=== PATIENT | female | born 1995 | race Hispanic/Latino ===

== ENCOUNTER 2021-10-31 21:32 | Emergency (ER) | payer SELFPAY ==
--- NOTE | 2021-10-31 21:59 | ER ---
Nurse's Notes [facility] Name: Heather Ivory Age: 26 yrs Sex: Female : 1995 Arrival Date: 10/31/2021 Time: 21:33 Bed Waiting Private MD: Diagnosis: ED Course: 10/31 21:33 Patient arrived in ED. [id number] Administered Medications: No medications were administered Outcome: 21:59 Patient left the ED. vc1 Signatures: Hyacinth Martell5 Ciara Hobson, RN RN vc1
== END 2021-10-31 21:59 | disposition left against medical advice (07) ==
LOC: ER 21:32
DX: Z02.9 Encounter for administrative examinations, unspecified (principal)

== ENCOUNTER 2021-11-01 08:52 | Emergency (ER) | payer BC ==
[2021-11-01 09:44] LABS: Urine Blood 2+ (Negative); Urine Glucose Negative (Negative); Urine Protein Negative (Negative); Urine Specific Gravity >=1.030 (1.005-1.030)
--- NOTE | 2021-11-01 10:49 | ER ---
Nurse's Notes [facility] Name: Heather Ivory Age: 26 yrs Sex: Female : 1995 Arrival Date: 11/01/2021 Time: 08:56 Bed 20 Private MD: Diagnosis: Paronychia of the right great toe Presentation: 11/01 09:07 Chief complaint: Patient states: " I picked my toenail and I pulled off too much and ph now it's red and swollen and looks like there's a pus pocket." Reports injury to R great toe, denies fever. Coronavirus screen: At this time, the client does not indicate any symptoms associated with coronavirus-19. Ebola Screen: No symptoms or risks identified at this time. Initial Sepsis Screen: Does the patient meet any 2 criteria? No. Patient's initial sepsis screen is negative. Does the patient have a suspected source of infection? No. Patient's initial sepsis screen is negative. Risk Assessment: Do you want to hurt yourself or someone else? Patient reports no desire to harm self or others. Onset of symptoms was November 01, 2021. 09:07 Method Of Arrival: Ambulatory 09:07 Acuity: DOMENIC 4 ph Triage Assessment: 11:00 General: Appears in no apparent distress. Behavior is calm. 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 - Social history:: Smoking status: Patient denies any tobacco usage or history of. Screenin:58 Abuse screen: Denies threats or abuse. Denies injuries from another. Nutritional coffey screening: No deficits noted. Tuberculosis screening: No symptoms or risk factors identified. Fall Risk None identified. Assessment: 10:58 Pain: Complains of pain in right great toe. Derm: Reports pain that is 9 out of 10 on a coffey pain scale. pus swollen great right toe. Vital Signs: 09:07 BP 118 / 74; Pulse 78; Resp 18; Temp 97.2; Pulse Ox 100% on R/A; Weight 61.23 kg; ph Height 4 ft. 11 in. (149.86 cm); 09:07 Body Mass Index 27.27 (61.23 kg, 149.86 cm) ED Course: 08:56 Patient arrived in ED. mr 08:56 Jean-Paul Zamora PA is PHCP. [facility] 08:56 Mikhail Meadows MD is Attending Physician. [facility] 09:09 Triage completed. 09:09 Arm band placed on Patient placed in an exam room. 10:49 Kun Albright DPM is Referral Physician. [facility] 10:58 Patient has correct armband on for positive identification. Bed in low position. coffey 10:58 No provider procedures requiring assistance completed. Patient did not have IV access coffey during this emergency room visit. Administered Medications: No medications were administered Outcome: 10:49 Discharge ordered by . [facility] 10:58 Discharged to home 10:58 Condition: good 10:58 Discharge instructions given to patient, Prescriptions given X 1. 11:00 Patient left the ED. coffey Signatures: Jean-Paul Zamora PA PA [facility] Ramandeep ByrdAshleigh RN RN Theodora Perez RN RN
--- NOTE | 2021-11-01 10:49 | EDPHYS ---
Physician Documentation [facility] Name: Heather Ivory Age: 26 yrs Sex: Female : 1995 Arrival Date: 11/01/2021 Time: 08:56 Bed 20 Private MD: ED Physician Mikhail Meadows HPI: 11/01 10:45 This 26 yrs old Female presents to ER via Ambulatory with complaints of Toe jmm Injury. 10:45 The complaints affect the Right first toenail. Onset: The symptoms/episode jmm began/occurred gradually, 2 week(s) ago. Modifying factors: The symptoms are alleviated by nothing, the symptoms are aggravated by nothing. Associated signs and symptoms: Pertinent positives: swelling, Pertinent negatives: fever. Patient complains of increased pain over the past few days. Denies fever. . 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 - Social history:: Smoking status: Patient denies any tobacco usage or history of. ROS: 10:45 Constitutional: Negative for fever, chills, and weight loss, Cardiovascular: Negative jmm for chest pain, palpitations, and edema, Respiratory: Negative for shortness of breath, cough, wheezing, and pleuritic chest pain. 10:45 Skin: Positive for erythema. 10:45 All other systems are negative. Exam: 10:45 Constitutional: This is a well developed, well nourished patient who is awake, alert, jmm and in no acute distress. Head/Face: atraumatic. Eyes: EOMI, no conjunctival erythema appreciated ENT: Moist Mucus Membranes Neck: Trachea midline, Supple Chest/axilla: Normal chest wall appearance and motion. Cardiovascular: Regular rate and rhythm. No edema appreciated Respiratory: Normal respirations, no respiratory distress appreciated Abdomen/GI: Non distended, soft Back: Normal ROM 10:45 Skin: erythema surrounding the right great toe nailplate. 10:45 Neuro: Orientation: is normal, Mentation: is normal, Memory: is normal. 10:45 Psych: Behavior/mood is pleasant, cooperative. Vital Signs: 09:07 BP 118 / 74; Pulse 78; Resp 18; Temp 97.2; Pulse Ox 100% on R/A; Weight 61.23 kg; ph Height 4 ft. 11 in. (149.86 cm); 09:07 Body Mass Index 27.27 (61.23 kg, 149.86 cm) ph Procedures: 10:45 I \T\ D: Incision and drainage was performed for an abscess of the Right first toenail jmm Prepped with Betadine, Anesthetized with Incised with 18 gauge. Drained small amount purulent fluid. Dressing: sterile 4x4 gauze, non-Adherent dressing, the patient tolerated the procedure well. MDM: 09:17 Patient medically screened. [facility] 10:45 Data reviewed: vital signs, nurses notes. Counseling: I had a detailed discussion with vilma the patient and/or guardian regarding: the historical points, exam findings, and any diagnostic results supporting the discharge/admit diagnosis, the need for outpatient follow up, to return to the emergency department if symptoms worsen or persist or if there are any questions or concerns that arise at home. ED course: Patient advised to follow up with podiatry, otherwise given strict return precautions. Patient understood and agrees with the plan of care. . 11/01 09:43 Order name: Urine Dipstick-Ancillary; Complete Time: 09:45 EDMS 11/01 09:43 Order name: Urine --Ancillary (enter results); Complete Time: 10:02 eb 11/01 09:17 Order name: Urine Test (obtain specimen); Complete Time: 09:46 [facility] 11/01 09:17 Order name: Urine Dipstick-Ancillary (obtain specimen); Complete Time: 09:46 [facility] Administered Medications: No medications were administered Disposition: 14:23 Co-signature as Attending Physician, Mikhail Meadows MD I agree with the assessment and kdr plan of care. Disposition Summary: 11/01/21 10:49 Discharge Ordered Location: Home [facility] Condition: Stable [facility] Diagnosis - Paronychia of the right great toe opal Followup: opal - With: Kun Albright DPM - When: 2 - 3 days - Reason: Recheck today's complaints, Continuance of care, Re-evaluation by your physician Discharge Instructions: - Discharge Summary Sheet opal - Paronychia [facility] Forms: - Medication Reconciliation Form [facility] - Thank You Letter jmm - Antibiotic Education jmm - Prescription Opioid Use jmm - Work release form eb Prescriptions: - Doxycycline Hyclate 100 mg Oral Tablet - take 1 tablet by ORAL route every 12 hours; 20 tablet; Refills: 0, Product jmm Selection Permitted Signatures: Dispatcher [employer] Mikhail Benites MD MD kdr Mickail, Joel, PA PA jmm Hall, Patricia, RN RN [facility] Hospital[facility]odora Cook RN RN coffey
[2021-11-01 11:11] VITALS: BP 118/74; TEMP 97.2; O2SAT 100
== END 2021-11-01 11:00 | disposition home or self-care (01) ==
LOC: ER 08:52
PROC: 0H9MXZZ Drainage of Right Foot Skin, External Approach (ICD-10-PCS; principal; 2021-11-01)
DX: L03.031 Cellulitis of right toe (principal); Z88.1 Allergy status to other antibiotic agents
CPT/HCPCS: 81003; 81025; 99282

== ENCOUNTER 2021-12-21 14:12 | Emergency (ER) | payer BC ==
[2021-12-21] MEDS ORDERED: NA CHLORIDE 0.9% 1,000 ML ONE (14:51)
[2021-12-21] MEDS ORDERED: FAMOTIDINE 20 MG/2 ML VIAL IV ONE (14:51)
[2021-12-21 15:12] LABS: Hematocrit 40.8 % (36.0-45.0); Lymphocytes % 12.6 % (15.3-44.8); MPV 7.9 fL (7.6-11.3); RBC Red Blood Cell Count 4.54 M/uL (3.86-4.86)
[2021-12-21 15:23] LABS: ALT/SGPT 46 U/L (12-78); AST/SGOT 20 U/L (15-37); Albumin 3.6 g/dL (3.4-5.0); Alkaline Phosphatase 77 U/L (45-117); BUN Blood Urea Nitrogen 7 mg/dL (7-18); Bicarbonate 25 mmol/L (21-32); Bilirubin Total 0.6 mg/dL (0.2-1.0); Glucose Level 92 mg/dL (74-106); Lipase 146 U/L (73-393); Potassium 3.6 mmol/L (3.5-5.1); Protein, Total 7.4 g/dL (6.4-8.2); Sodium Level 137 mmol/L (136-145)
--- NOTE | 2021-12-21 15:48 | RAD REPORT ---
EXAM DESCRIPTION: RAD - Chest Single View - 12/21/2021 3:38 pm CLINICAL HISTORY: CHEST PAIN Chest pain. COMPARISON: No comparisons FINDINGS: Portable technique limits examination quality. The lungs are grossly clear. The heart is normal in size. No displaced fractures. IMPRESSION: No acute intrathoracic process suspected.
--- NOTE | 2021-12-21 16:23 | ER ---
Nurse's Notes [facility] Name: Heather Ivory Age: 26 yrs Sex: Female : 1995 Arrival Date: 12/21/2021 Time: 14:19 Bed 9 Private MD: LI GRIDER Diagnosis: Chest pain, unspecified Presentation: 12/21 14:27 Chief complaint: Patient states: Feeling like something is stuck in chest, hard to jl7 swallow, hurts to swallow since yesterday. Coronavirus screen: At this time, the client does not indicate any symptoms associated with coronavirus-19. Ebola Screen: No symptoms or risks identified at this time. Initial Sepsis Screen: Does the patient meet any 2 criteria? No. Patient's initial sepsis screen is negative. Does the patient have a suspected source of infection? No. Patient's initial sepsis screen is negative. Risk Assessment: Do you want to hurt yourself or someone else? Patient reports no desire to harm self or others. Onset of symptoms was December 20, 2021. 14:27 Method Of Arrival: Ambulatory [facility] 14:27 Acuity: DOMENIC 3 jl7 Triage Assessment: 14:29 General: Appears in no apparent distress. uncomfortable, Behavior is calm, cooperative, jl7 appropriate for age. Pain: Complains of pain in chest Pain currently is 5 out of 10 on a pain scale. Cardiovascular: Patient's skin is warm and dry. 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 - Social history:: Smoking status: Reported history of juuling and/or vaping. Screenin:03 Abuse screen: Denies threats or abuse. Denies injuries from another. Nutritional ld1 screening: No deficits noted. Tuberculosis screening: No symptoms or risk factors identified. Fall Risk None identified. Assessment: 15:03 General: Appears in no apparent distress. comfortable, Behavior is calm, cooperative, ld1 appropriate for age. Pain: Complains of pain in chest Pain does not radiate. Pain currently is 2 out of 10 on a pain scale. Quality of pain is described as burning. 15:03 Pain: Pain began gradually. Neuro: Level of Consciousness is awake, alert, obeys ld1 commands, Oriented to person, place, time, situation. Cardiovascular: Capillary refill < 3 seconds Patient's skin is warm and dry. Rhythm is regular. Respiratory: Airway is patent Respiratory effort is even, unlabored. GI: Abdomen is flat, non-distended. : No signs and/or symptoms were reported regarding the genitourinary system. 16:07 Reassessment: Patient appears in no apparent distress at this time. Patient and/or ld1 family updated on plan of care and expected duration. Pain level reassessed. Patient is alert, oriented x 3, equal unlabored respirations, skin warm/dry/pink. Vital Signs: 14:27 BP 128 / 79; Pulse 81; Resp 17; Temp 98.9; Pulse Ox 99% ; Weight 63.5 kg; Height 5 ft. jl7 0 in. (152.40 cm); Pain 5/10; 15:03 BP 124 / 77; Pulse 79; Resp 18; Pulse Ox 100% on R/A; ld1 16:07 BP 129 / 73; Pulse 81; Resp 18; Pulse Ox 100% ; ld1 14:27 Body Mass Index 27.34 (63.50 kg, 152.40 cm) jl7 ED Course: 14:19 Patient arrived in ED. am2 14:19 LI GRIDER is Private Physician. am2 14:21 Bebe Costa FNP-C is [facility]. kb 14:21 Fabien Mata MD is Attending Physician. kb 14:29 Triage completed. jl7 14:29 Arm band placed on right wrist. jl7 14:32 Jazmyne Busch, TERESA is Primary Nurse. ld1 15:03 Patient has correct armband on for positive identification. Placed in gown. Bed in low ld1 position. Call light in reach. Side rails up X2. denitrator operator on. Pulse ox on. NIBP on. Door closed. Noise minimized. Warm blanket given. 15:03 No provider procedures requiring assistance completed. Inserted saline lock: 20 gauge ld1 in right antecubital area, using aseptic technique. Blood collected. Patient maintains SpO2 saturation greater than 95% on room air. 15:05 Inserted saline lock: 20 gauge in right antecubital area, using aseptic technique. zm Blood collected. 15:06 CBC with Diff Sent. zm 15:06 CMP Sent. zm 15:06 Lipase Sent. zm 15:40 Chest Single View XRAY In Process Unspecified. EDMS 16:35 IV discontinued, intact, bleeding controlled, No redness/swelling at site. ld1 Administered Medications: 14:57 Drug: NS 0.9% 1000 ml Route: IV; Rate: 1 bolus; Site: right antecubital; ld1 14:57 Drug: Pepcid (famotidine) 20 mg Route: IVP; Site: right antecubital; ld1 Outcome: 16:23 Discharge ordered by . michelle 16:35 Discharged to home ambulatory. ld1 16:35 Condition: stable 16:35 Discharge instructions given to patient, family, Instructed on discharge instructions, follow up and referral plans. medication usage, Demonstrated understanding of instructions, follow-up care, medications. 16:35 Patient left the ED. ld1 Signatures: Dispatcher [employer] EDMS Bebe Costa, INSTRUMENT AND CONTROLS TECHNICIAN-C INSTRUMENT AND CONTROLS TECHNICIAN-CkRoxana Dominique RN RN carol7 Jaqueline Hudson Lauren RN RN ld1 Susan Marie
--- NOTE | 2021-12-21 16:24 | EDPHYS ---
Physician Documentation [facility] Name: Heather Ivory Age: 26 yrs Sex: Female : 1995 Arrival Date: 12/21/2021 Time: 14:19 Bed 9 Private MD: LI GRIDER ED Physician Fabien Mata HPI: 12/21 16:40 This 26 yrs old Female presents to ER via Ambulatory with complaints of kb possible heartburn, Chest Pressure. 16:40 The pain does not radiate. The patient has not experienced similar symptoms in the kb past. The patient has not recently seen a physician. 16:41 The patient or guardian reports chest pain that is located primarily in the substernal kb area. Associated signs and symptoms: Pertinent positives: pain/trouble swallowing. The chest pain is described as aching. Duration: The patient or guardian reports a single episode. Modifying factors: the symptoms are aggravated by eating. Severity of pain: At its worst the pain was moderate in the emergency department the pain is unchanged. 16:43 Pt states she was hungover on so she was vomiting a lot, felt a little better kb on Wednesday but slept most of the day. Then yesterday she felt like something was stuck in the middle of her chest. States when she is sitting or laying it feels like something is trying to come up from her stomach. Reports pain on swallowing, but is able to tolerate food/fluids by mouth. . 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 - Social history:: Smoking status: Reported history of juuling and/or vaping. ROS: 16:38 Constitutional: Negative for fever, chills, and weight loss. kb 16:38 Cardiovascular: Positive for chest pain, Negative for edema, orthopnea, palpitations, paroxysmal nocturnal dyspnea. 16:38 All other systems are negative. 16:40 ENT: Positive for trouble swallowing. kb 16:40 Abdomen/GI: Positive for reflux. Exam: 16:39 Constitutional: This is a well developed, well nourished patient who is awake, alert, kb and in no acute distress. Head/Face: Normocephalic, atraumatic. ENT: Moist Mucous membranes Cardiovascular: Regular rate and rhythm with a normal S1 and S2. No gallops, murmurs, or rubs. No pulse deficits. Respiratory: Respirations even and unlabored. No increased work of breathing. Talking in full sentences Abdomen/GI: Soft, non-tender. No distention Skin: Warm, dry with normal turgor. Normal color. MS/ Extremity: Pulses equal, no cyanosis. Neurovascular intact. Full, normal range of motion. Neuro: Awake and alert, GCS 15, oriented to person, place, time, and situation. Moves all extremities. Normal gait. Psych: Awake, alert, with orientation to person, place and time. Behavior, mood, and affect are within normal limits. Vital Signs: 14:27 BP 128 / 79; Pulse 81; Resp 17; Temp 98.9; Pulse Ox 99% ; Weight 63.5 kg; Height 5 ft. jl7 0 in. (152.40 cm); Pain 5/10; 15:03 BP 124 / 77; Pulse 79; Resp 18; Pulse Ox 100% on R/A; ld1 16:07 BP 129 / 73; Pulse 81; Resp 18; Pulse Ox 100% ; ld1 14:27 Body Mass Index 27.34 (63.50 kg, 152.40 cm) jl7 MDM: 14:29 Patient medically screened. kb 16:37 Data reviewed: vital signs, nurses notes. Data interpreted: Pulse oximetry: on room air kb is 100 %. Interpretation: normal. Counseling: I had a detailed discussion with the patient and/or guardian regarding: the historical points, exam findings, and any diagnostic results supporting the discharge/admit diagnosis, lab results, radiology results, the need for outpatient follow up, a family practitioner, to return to the emergency department if symptoms worsen or persist or if there are any questions or concerns that arise at home. 12/21 14:29 Order name: CBC with Diff; Complete Time: 15:27 kb 12/21 14:29 Order name: CMP; Complete Time: 15:27 kb 12/21 14:29 Order name: Lipase; Complete Time: 15:27 kb 12/21 14:29 Order name: Chest Single View XRAY; Complete Time: 15:57 kb 12/21 14:29 Order name: IV Saline Lock; Complete Time: 14:57 kb 12/21 14:29 Order name: Labs collected and sent; Complete Time: 14:57 kb Administered Medications: 14:57 Drug: NS 0.9% 1000 ml Route: IV; Rate: 1 bolus; Site: right antecubital; ld1 14:57 Drug: Pepcid (famotidine) 20 mg Route: IVP; Site: right antecubital; ld1 Disposition: 16:57 Co-signature as Attending Physician, Fabien Mata MD. rn Disposition Summary: 12/21/21 16:23 Discharge Ordered Location: Home kb Condition: Stable kb Diagnosis - Chest pain, unspecified kb Followup: kb - With: Emergency Department - When: As needed - Reason: Worsening of condition Followup: kb - With: Private Physician - When: 2 - 3 days - Reason: Recheck today's complaints, Continuance of care, Re-evaluation by your physician Discharge Instructions: - Discharge Summary Sheet kb - Nonspecific Chest Pain, Adult, [id number] kb - Gastroesophageal Reflux Disease, Adult, [id number] kb Forms: - Medication Reconciliation Form kb - Thank You Letter kb - Antibiotic Education kb - Prescription Opioid Use kb - Work release form eb Prescriptions: - Protonix 40 mg Oral Tablet - take 1 tablet by ORAL route once daily; 30 tablet; Refills: 0, Product kb Selection Permitted Signatures: Dispatcher [employer] EDIA Bebe Costa, GROUND SCHOOL INSTRUCTOR-C GROUND SCHOOL INSTRUCTOR-Ckb Fabien Mata MD MD rn Leal, Jahala RN RN jl7 Jazmyne Busch RN RN ld1 Corrections: (The following items were deleted from the chart) 16:40 16:38 Cardiovascular: Positive for chest pain, Negative for edema, orthopnea, kb palpitations, paroxysmal nocturnal dyspnea, kb 16:43 16:40 The patient or guardian reports chest pain that is located primarily in the kb anterior chest wall, right, kb
[2021-12-21 17:02] VITALS: TEMP 98.9
[2021-12-21 17:03] VITALS: O2SAT 100
[2021-12-21 17:04] VITALS: BP 129/73
== END 2021-12-21 16:35 | disposition home or self-care (01) ==
LOC: ER 14:12
DX: R07.9 Chest pain, unspecified (principal); Z88.1 Allergy status to other antibiotic agents; F41.8 Other specified anxiety disorders
CPT/HCPCS: 85025; 36415; 83690; 80053; 71045; 96374; 99285; J7030

== ENCOUNTER 2022-08-17 13:40 | Emergency (ER) | payer BC ==
--- OUTSIDE RECORDS SUMMARY | 2022-08-17 13:57 | XMS REPORT | Continuity of Care Document ---
:1995 Author Organization [facility] t Address [address] [place] [address] Care Team Providers Name Role Phone Martha Barbosa Primary Care Physician PATRICIA GONGORA Attending Clinician Unavailable Masoud RILEY, Eula Attending Clinician Pob, Adc Lab Main Attending Clinician Unavailable EULA STOCKTON Attending Clinician Unavailable Jolene Multani RN Attending Clinician Unavailable Patricia Gongora MD Attending Clinician Doctor Unassigned, Jordan Attending Clinician Unavailable Lab, Ang - Db Attending Clinician Unavailable PATRICIA GONGORA Admitting Clinician Unavailable Payers Payer Name Policy Type Policy Number Effective Date Expiration Date S [facility] - [id number] 2018 00:00:00 OUT OF STATE Problems Condition Condition Condition Status Onset Resolution Last Treating Co mments Source Name Details Category Date Date Treatment Clinician Date No known No known Disease Unive rs active active ity of problems problems [facility] Allergies, Adverse Reactions, Alerts Allergy Allergy Status Severity Reaction(s) Onset Inactive Treating Comm ents Source Name Type Date Date Clinician AMOXICIL DRUG Active Rash Univers ANDIE INGREDI - ity of 00:00: [address] Amoxicil Propensi Active Rash Univer s andie ty to 12-06 ity of adverse 00:00: [place] reaction 00 Medical s Branch Social History Social Habit Start Date Stop Date Quantity Comments Source ASSERTION 2022-06-01 [facility] 00:00:00 [facility] History of Cigarette Smoker Universi ty of tobacco use [facility] Exposure to 2022-07-27 2022-08-06 Not sure [facility] SARS-CoV-2 00:00:00 15:00:00 [facility] (event) Branch Alcohol intake 2022-07-29 2022-07-29 Ex-drinker [facility] 00:00:00 00:00:00 (finding) [facility] Tobacco use and 2022-07-14 2022-07-14 Smokeless tobacco Un iversity of exposure 00:00:00 00:00:00 non-user [facility] Sex Assigned At [birth year] Universit y of 00:00:00 00:00:00 [facility] Smoking Status Start Date Stop Date Source Tobacco smoking [facility] xa consumption unknown Medical Bran ch Ex-smoker 2022-07-14 00:00:00 2022-07-14 [facility] [place] 00:00:00 [facility] Medications Ordered Filled Start Stop Current Ordering Indication Dosage Frequency Signature Comments Components Source Medication Medication Date Date Medication? Clinician (SIG) Name Name No known 2021-09 No No known Unive rs medications 1-19 medication it y of 00:56: [address] No known 2021-09 No No known Unive rs medications 1-19 medication it y of 00:56: [address] No known 2021-09 No No known Unive rs medications 1-19 medication it y of 00:56: [address] No known 2021-09 No No known Unive rs medications 1-19 medication it y of 00:56: [address] No known 2021-09 No No known Unive rs medications 1-19 medication it y of 00:56: [address] No known 2021-09 No No known Unive rs medications 1-19 medication it y of 00:56: [address] No known 2021-09 No No known Unive rs medications 1-19 medication it y of 00:56: [address] No known 2021-09 No No known Unive rs medications 1-19 medication it y of 00:56: [address] metroNIDAZO 2021-09- Yes 500mg Take 1 Un sofiya LE 500 mg 09-30 tablet by ity of tablet 00:00: 05:59 mouth [place] 00 :00 every 12 Medical (twelve) Branch hours for 7 days. metroNIDAZO 2021-09- Yes 500mg Take 1 Un sofiya LE 500 mg 09-30 tablet by ity of tablet 00:00: 05:59 mouth [place] 00 :00 every 12 Medical (twelve) Branch hours for 7 days. metroNIDAZO 2021-09- No 500mg Take 1 Un sofiya LE 500 mg 09-30 tablet by ity of tablet 00:00: 00:00 mouth [place] 00 :00 every 12 Medical (twelve) Branch hours for 7 days. No known 2021-09 No No known Unive rs medications 1-09 medication it y of 15:19: [address] No known 2021-09 No No known Unive rs medications 1-09 medication it y of 15:19: [address] No known 2021-09 No No known Unive rs medications 1-09 medication it y of 15:19: [address] No known 2021-09 No No known Unive rs medications 0-25 medication it y of 11:16: [address] No known 2021-09 No No known Unive rs medications 0-25 medication it y of 11:16: [address] No known 2021- No No known Unive rs medications 0-25 medication it y of 11:16: [address] No known 2021-09 No No known Unive rs medications 0-25 medication it y of 11:16: [address] No known 2021-09 No No known Unive rs medications 0-25 medication it y of 11:16: [address] No known 2008- No No known Unive rs medications 3-16 medication it y of 11:42: [address] Immunizations Ordered Filled Immunization Date Status Comments [facility] e Immunization Name Name [facility] 2010-09-09 Completed University of 00:00:00 [facility] 2010-09-09 Completed University 00:00:00 [facility] 2010-06-11 Completed University of 00:00:00 [facility] 2010-06-11 Completed University of 00:00:00 [facility] HPV 2010-02-04 Completed University of 00:00:00 [facility] HPV 2010-02-04 Completed University of 00:00:00 [facility] Vital Signs Vital Name Observation Time Observation Value Comments Source Systolic blood 2022-08-06 21:20:00 113 mm[Hg] Univer sity of pressure [facility] Diastolic blood 2022-08-06 21:20:00 70 mm[Hg] Unive rsity of pressure [facility] Heart rate 2022-08-06 21:20:00 80 /min Universi ty of [facility] Body temperature 2022-08-06 21:20:00 36.72 Vira Univ ersity of [facility] Body height 2022-08-06 21:20:00 152.4 cm Universi ty of [facility] Body weight 2022-08-06 21:20:00 65.409 kg Universi ty of [facility] BMI 2022-08-06 21:20:00 28.16 kg/m2 Universi ty of [facility] Systolic blood 2022-07-29 21:38:00 112 mm[Hg] Univer sity of pressure [facility] Diastolic blood 2022-07-29 21:38:00 74 mm[Hg] Unive rsity of pressure [facility] Heart rate 2022-07-29 21:38:00 79 /min [facility] [place] [facility] [place] Body temperature 2022-07-29 21:38:00 37.06 Vira Univ ersity of [facility] Respiratory rate 2022-07-29 21:38:00 16 /min [facility] ersity of [facility] Body height 2022-07-29 21:38:00 152.4 cm [facility]i ty [facility] [place] [facility] [place] Body weight 2022-07-29 21:38:00 65.273 kg [facility] [place] [facility] [place] BMI 2022-07-29 21:38:00 28.10 kg/m2 Universi ty of [facility] Oxygen saturation in 2022-07-29 21:38:00 97 /min [facility] Arterial blood by [facility] Pulse oximetry Branch Systolic blood 2022-07-14 16:12:00 115 mm[Hg] Univer sity of pressure [facility] Diastolic blood 2022-07-14 16:12:00 78 mm[Hg] [facility] rs[facility] of pressure [facility] Heart rate 2022-07-14 16:12:00 76 /min [facility] Body temperature 2022-07-14 16:12:00 36.67 Vira [facility] Res[facility] rate 2022-07-14 16:12:00 16 /min [facility] Body height 2022-07-14 16:12:00 152.4 cm [facility] Body weight 2022-07-14 16:12:00 64.184 kg [facility] BMI 2022-07-14 16:12:00 27.63 kg/m2 [facility] Oxygen saturation in 2022-07-14 16:12:00 99 /min [facility] Arterial blood by [facility] Pulse oximetry Branch Procedures Procedure Date / Time Performing Clinician Source Performed TOTAL BETA HCG ASSAY 2022-08-10 22:09:00 Eula Stockton [facility] FIRST 2022-08-05 15:56:50 Adum, Patricia Carrillo [facility] TRIMESTER LESS THAN 14 Medical B ranch WEEKS WITH TRANSVAGINAL US OB TRANSVAGINAL 2022-07-29 23:16:40 Adum, Patricia Carrillo [facility] GALV ONLY - VAGINAL 2022-07-29 21:44:00 Adum, Patricia Carrillo [facility] PATHOGENS BY NUCLEIC [facility] ACID TESTING [facility] 2022-07-29 06:01:00 Doctor Unassigned, No [facility] ULTRASOUND Name [facility] OB TRANSVAGINAL 2022-07-20 20:07:48 Adum, Patricia Carrillo [facility] US OB TRANSVAGINAL 2022-07-20 20:06:45 Adum, Patricia Carrlilo [facility] GALV ONLY - VAGINAL 2022-07-14 17:09:00 Adum, Patricia Carrillo [facility] PATHOGENS BY NUCLEIC Medical Bra nc ACID TESTING GC & CHLAMYDIA 2022-07-14 16:23:00 Adum, Patricia Carrillo [facility] AMPLIFIED ASSAY [facility] TRICHOMONAS AMPLIFIED 2022-07-14 16:23:00 Patricia Gongora [facility] ASSIGNMENT OF BENEFITS 2022-07-14 15:37:23 Doctor Unassigned, No [facility] POCT TEST 2022-07-14 00:00:00 Patricia Gongora [facility] Encounters Start End Encounter Admission Attending Care Care Encounter Source Date/Time Date/Time Type Type Clinicians Facility Department ID 2022-08-18 2022-08-18 Outpatient R FRANSISCA [facility] [id number] Univers 13:45:00 13:45:00 PATRICIA fischer [facility] 2022-08-11 2022-08-11 Telephone [facility] [id number] Univers 00:00:00 00:00:00 Eula ZEE 350.1.13.10 it y of PEDIATRIC 4.2.7.2.686 xas [facility] [id number] [address] 2022-08-10 2022-08-10 Territory Manager Annie Hernandez Lab Main [facility] 1.2.8 40.114 [id number] Univers 16:15:00 16:30:00 Visit Eula Stockton 350.1.13. 10 ity of [place] 4.2.7.2.686 [facility] [id number] [address] 2022-08-10 2022-08-10 Outpatient R EULA STOCKTON [facility] B [id number] Univers 16:15:00 16:15:00 EULA STOCKTON [facility] 2022-08-10 2022-08-[address] [facility] [id number] Univers 00:00:00 00:00:00 Management Eula ZEE 350.1.13.10 ity of WOMEN'S 4.2.7.2.686 [facility] [id number] [address] 2022-08-10 2022-08-10 Telephone [facility] 1.2.840.11 [id number] Univers 00:00:00 00:00:00 Eula ZEE 350.1.13.10 [place].2.686 [place] [id number] [facility] [address] 2022-08-09 2022-08-09 Nurse CLIFF Multani 1.2.840.114 [id number] Univers 00:00:00 00:00:00 Triage Jolene CHENG 350.1.13.10 ity of [facility] 4.2.7.2.686 Conner as [id number] [facility] [address] 2022-08-06 2022-08-06 Outpatient R ADUM, [facility] [id number] Univers 15:00:00 16:20:04 PATRICIA ity [facility] 2022-08-06 2022-08-06 [facility] 1.2.840.114 [id number] Univers 15:00:00 16:20:04 Patricia LEONG 350.1.13.10 ity of [place]2.7.2.686 [place] [facility] [id number] [address] 2022-08-05 2022-08-05 Outpatient R ADUM, [facility] [id number] Univers 09:18:56 23:59:00 PATRICIA ity of [facility] 2022-08-05 2022-08-05 Hospital [facility] 1.2.840.114 [id number] Univers 09:00:00 23:59:00 Encounter Patricia LEONG 350.1.13.10 ity of [place]2.7.2.686 [place] [id number] [facility] [address] 2022-07-31 2022-07-31 Case [facility] 1.2.840.114 [id number] Univers 00:00:00 00:00:00 Management Patricia LEONG 350.1.13.10 ity of [place]2.7.2.686 [place] [id number] Nc dical NAL [address] [facility] 2022-07-29 2022-07-29 Territory Manager David, Adc Lab Main [facility] 1.2.8 40.114 [id number] Univers 17:15:00 17:30:00 Visit Adum, Patricia LEONG 350.1.13.10 ity of [facility] 4.2.7.2.686 [place] [id number] [address] 2022-07-29 2022-07-29 Outpatient R ADUM, [facility] [id number] Univers 15:30:00 16:34:51 PATRICIA ity [facility] 2022-07-29 2022-07-29 Routine Adum, [facility] [id number] Univers 15:30:00 16:34:51 Patricia ZEE 350.1.13.10 ity of Visit W[place] 4.2.7.2.686 [place] [facility] [id number] [address] 2022-07-29 2022-07-29 Orders Doctor CLIFF 1.2.840.114 [id number] Univers 00:00:00 00:00:00 Only Unassigned, PROSPER 350.1.13.10 ity of [place] [facility] 4.2.7.2.686 Con[place] as [id number] [place] [address] Branch 2022-07-16 2022-07-16 Territory Manager Lab, Ang - Db [facility] 1.2.840.1 [id number] Univers 12:30:00 12:45:00 Visit Adum, Patricia Carrillo HEALTH 350.1.13.10 ity of [facility] 4.2.7.2.686 Conner as ZBIGNIEW?BLEA [id number] [address] OFFICE [facility] 2022-07-16 2022-07-16 Outpatient R ADUM, [facility] [id number] Univers 12:30:00 12:30:00 PATRICIA ity [facility] 2022-07-14 2022-07-14 Territory Manager Lab, Ang - Db [facility] 1.2.840.1 [id number] Univers 12:30:00 12:45:00 Visit Adum, Patricia Carrillo HEALTH 350.1.13.10 ity of [facility] 4.2.7.2.686 [place] as ZBIGNIEW?BLEA [id number] [address] OFFICE [facility] 2022-07-14 2022-07-14 Outpatient R ADUM, [facility] [id number] Univers 10:15:00 12:14:27 PATRICIA itsamir of [facility] 2022-07-14 2022-07-14 Initial Adum [facility] [id number] Univers 10:15:00 12:14:27 Patricia ZEE 350.1.13.10 ity of Visit W[place]2.7.2.686 [place] [id number] [address] 2022-07-14 2022-07-14 Letter Adum, [facility] [id number] Univers 00:00:00 00:00:00 (Out) Patricia ZEE 350.1.13.10 i ty of [place]2.7.2.686 [place] [id number] [address] 2022-07-14 2022-07-14 Letter Doctor CLIFF 1.2.840.114 [id number] Univers 00:00:00 00:00:00 (Out) Unassigned, PROSPER 350.1.13.10 ity of [place] [facility] 4.2.7.2.686 Conner as [id number] [address] 2022-07-14 2022-07-14 Orders Doctor CLIFF 1.2.840.114 [id number] Univers 00:00:00 00:00:00 Only Unassigned, PROSPER 350.1.13.10 ity of [place] [facility] 4.2.7.2.686 Conner as [id number] [facility] [address] Results Test Description Test Time Test Comments Results Result Comments Source TOTAL BETA HCG ASSAY 2022-08-10 23:44:34 Test Item Value Reference Range Interpretation Comme nts BETA HCG (test code = See_Comment [Auto mated message] The [id number]) system which ge nerated this result transmit suma reference range : Non- fe male and male patients: <5 mIU/mL. The reference r korey was not used to interpr et this result as jade l/abnormal. EDU (test code = EDU) Gestational Age ?Range (mIU/mL) 1-10 ?Weeks ?[id number] Weeks ?[id number] Weeks ?[id number] Weeks ?[id number] Biotin has been reported to cause a negative bias, interpret results relative to patient's use of biotin. [id number] 16:23:00 Test Item Value Reference Range Interpretation Comments POCT PREG (test code = 1605) Positive On board controls acceptable with C Yes Line (test code = 3574) POCT PREG LOT # (test code = 3575) POCT PREG TEST DATE (test code = 3576) [facility]
[2022-08-17 15:18] LABS: Absolute Lymphocytes (CBC) 2.3 K/uL (0.7-4.9); Hematocrit 37.8 % (36.0-45.0); MCV 90.9 fL (80-100); MPV 7.5 fL (7.6-11.3); RBC Red Blood Cell Count 4.16 M/uL (3.86-4.86)
[2022-08-17 15:22] LABS: Urine Blood 3+ (Negative); Urine Glucose Negative (Negative); Urine Protein Negative (Negative); Urine pH 5.5 (5.0-7.0)
[2022-08-17 15:36] LABS: Potassium 3.8 mmol/L (3.5-5.1)
--- NOTE | 2022-08-17 15:54 | RAD REPORT ---
EXAM DESCRIPTION: US - Transvaginal OB - 08/17/2022 3:37 pm CLINICAL HISTORY: Abd cramping, COMPARISON: TRANSVAGINALOB dated 07/10/2013 FINDINGS: The uterus measures 10.4 x 6 by 6.4 cm with volume of 205 cc. The endometrial echo complex measures 9 millimeters. The right ovary is visualized and measures 2.5 x 1.9 x 1.7 cm with volume of 4.3 cc. The left ovary is not visualized. No free fluid identified. IMPRESSION: Pelvic ultrasound is within normal limits for age. Vascular flow present within the righ t ovary. Left ovary not visualized.
--- NOTE | 2022-08-17 16:34 | EDPHYS ---
Physician Documentation [facility] Name: Heather Ivory Age: 27 yrs Sex: Female : 1995 Arrival Date: 08/17/2022 Time: 13:42 Bed IW5 Private MD: ED Physician Ousmane Gutierres HPI: 08/17 19:44 This 27 yrs old Female presents to ER via Ambulatory with complaints of kb Vaginal Bleeding, + Preg <12wks. 19:44 The patient presents to the emergency department with vaginal bleeding, that is kb moderate, with clots, with tissue. course: care: at a clinic, Leakage of Fluid: none appreciated, Ultrasound: the patient had an ultrasound. Previous pregnancies: in previous pregnancies patient has had. Associated signs and symptoms: Pertinent positives: abdominal pain, vaginal bleeding. The patient has not experienced similar symptoms in the past. The patient has been recently seen by a physician:. 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 . 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 - Social history:: Smoking status: Reported history of juuling and/or vaping. ROS: 19:44 Constitutional: Negative for fever, chills, and weight loss. kb 19:44 Abdomen/GI: Positive for abdominal cramps. 19:44 : Positive for vaginal bleeding. 19:44 All other systems are negative. Exam: 19:44 Constitutional: This is a well developed, well nourished patient who is awake, alert, kb and in no acute distress. Head/Face: Normocephalic, atraumatic. ENT: Moist Mucous membranes Cardiovascular: Regular rate and rhythm with a normal S1 and S2. No gallops, murmurs, or rubs. No pulse deficits. Respiratory: Respirations even and unlabored. No increased work of breathing. Talking in full sentences Abdomen/GI: Soft, non-tender. No distention Skin: Warm, dry with normal turgor. Normal color. MS/ Extremity: Pulses equal, no cyanosis. Neurovascular intact. Full, normal range of motion. Neuro: Awake and alert, GCS 15, oriented to person, place, time, and situation. Moves all extremities. Normal gait. Psych: Awake, alert, with orientation to person, place and time. Behavior, mood, and affect are within normal limits. Vital Signs: 15:15 BP 138 / 87; Pulse 78; Resp 16; Temp 99.3(O); Pulse Ox 100% on R/A; Weight 63.5 kg; ss Height 5 ft. 0 in. (152.40 cm); 15:15 Body Mass Index 27.34 (63.50 kg, 152.40 cm) ss MDM: 15:04 Patient medically screened. kb 19:43 Data reviewed: vital signs, nurses notes. Data interpreted: Pulse oximetry: on room air kb is 100 %. Interpretation: normal. Counseling: I had a detailed discussion with the patient and/or guardian regarding: the historical points, exam findings, and any diagnostic results supporting the discharge/admit diagnosis, lab results, radiology results, the need for outpatient follow up, an OB/Gyne specialist, to return to the emergency department if symptoms worsen or persist or if there are any questions or concerns that arise at home. 08/17 15:04 Order name: Abo/rh Typing; Complete Time: 15:56 kb 08/17 15:04 Order name: Basic Metabolic Panel; Complete Time: 15:56 kb 08/17 15:04 Order name: CBC with Diff; Complete Time: 15:23 kb 08/17 15:04 Order name: Quantitative Hcg; Complete Time: 15:56 kb 08/17 15:23 Order name: Urine Dipstick-Ancillary; Complete Time: 15:23 EDMS 08/17 15:04 Order name: US Transvaginal Ob; Complete Time: 15:56 kb 08/17 15:04 Order name: IV Saline Lock; Complete Time: 16:12 kb 08/17 15:04 Order name: Labs collected and sent; Complete Time: 16:12 kb 08/17 15:04 Order name: NPO; Complete Time: 16:12 kb 08/17 15:04 Order name: Urine Dipstick-Ancillary (obtain specimen); Complete Time: 16:12 kb 08/17 15:04 Order name: Urine Test (obtain specimen); Complete Time: 16:12 kb Administered Medications: No medications were administered Disposition: 19:56 Co-signature as Attending Physician, Ousmane Gutierres DO I was immediately available on-site ms3 in the Emergency Department for consultation in the care of the patient.. Disposition Summary: 08/17/22 16:33 Discharge Ordered Location: Home kb Condition: Stable kb Diagnosis - Complete or unspecified spontaneous without complication kb Followup: kb - With: Emergency Department - When: As needed - Reason: Worsening of condition Followup: kb - With: Private Physician - When: 2 - 3 days - Reason: Recheck today's complaints, Continuance of care, Re-evaluation by your physician Discharge Instructions: - Discharge Summary Sheet kb - Miscarriage, [id number] kb Forms: - Medication Reconciliation Form kb - Thank You Letter kb - Antibiotic Education kb - Work release form kb - Prescription Opioid Use kb Signatures: Dispatcher [employer] Bebe Ornelas, BRANDIN-Adan GHOTRA-Halle Mistry, RN RN Ousmane Ridley DO DO ms3
--- NOTE | 2022-08-17 16:34 | ER ---
Nurse's Notes [facility] Name: Heather Ivory Age: 27 yrs Sex: Female : 1995 Arrival Date: 08/17/2022 Time: 13:42 Bed IW5 Private MD: Diagnosis: Complete or unspecified spontaneous without complication Presentation: 08/17 15:15 Chief complaint: Patient states: vaginal bleeding that began 1 week ago, became worse ss today at 1300. Coronavirus screen: Client denies travel out of the [place] in the last 14 days. Ebola Screen: Patient denies exposure to infectious person. Patient denies travel to an Ebola-affected area in the 21 days before illness onset. Initial Sepsis Screen: Does the patient meet any 2 criteria? No. Patient's initial sepsis screen is negative. Does the patient have a suspected source of infection? No. Patient's initial sepsis screen is negative. Risk Assessment: Do you want to hurt yourself or someone else? Patient reports no desire to harm self or others. Onset of symptoms was August 10, 2022. 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 - Social history:: Smoking status: Reported history of juuling and/or vaping. Screenin:41 Abuse screen: Denies threats or abuse. Denies injuries from another. Nutritional iw screening: No deficits noted. Tuberculosis screening: No symptoms or risk factors identified. Fall Risk None identified. Assessment: 15:15 General: Appears in no apparent distress. comfortable, Behavior is calm, cooperative. ss Neuro: Level of Consciousness is awake, alert, obeys commands. Cardiovascular: Capillary refill < 3 seconds is brisk in bilateral fingers Patient's skin is warm and dry. Respiratory: Airway is patent Respiratory effort is even, unlabored. : Reports vaginal bleeding that is since x 1 week. Vital Signs: 15:15 BP 138 / 87; Pulse 78; Resp 16; Temp 99.3(O); Pulse Ox 100% on R/A; Weight 63.5 kg; ss Height 5 ft. 0 in. (152.40 cm); 15:15 Body Mass Index 27.34 (63.50 kg, 152.40 cm) ss ED Course: 13:42 Patient arrived in ED. rg4 13:49 [facility]be Costa FNP-C [facility] kb 13:49 Ousmane Gutierres DO is Attending Physician. kb 15:17 Triage completed. ss 15:17 Arm band placed on right wrist. ss 15:39 US Transvaginal Ob In Process Unspecified. EDMS 16:36 Halle Khalil, RN is Primary Nurse. ss 16:42 Patient has correct armband on for positive identification. iw 16:42 No provider procedures requiring assistance completed. Patient did not have IV access iw during this emergency room visit. Administered Medications: No medications were administered Medication: 15:15 VIS not applicable for this client. ss Outcome: 16:33 Discharge ordered by MD. kb 16:41 Discharged to home ambulatory, with family. iw 16:41 Condition: good 16:41 Discharge instructions given to patient, family, Instructed on discharge instructions, follow up and referral plans. Demonstrated understanding of instructions, follow-up care. 16:42 Patient left the ED. iw Signatures: Dispatcher [employer] EDNE Bebe Costa FNP-C FNP-Ashley Pepe, RN RN iw Halle Khalil, TERESA RN Fiona Hanna rg4 Corrections: (The following items were deleted from the chart) 15:17 15:15 Chief complaint: Patient states: vaginal bleeding that began 1 week ago, became ss worse today at 1300. ss
[2022-08-17 17:02] VITALS: BP 138/87; TEMP 99.3; O2SAT 100
== END 2022-08-17 16:42 | disposition home or self-care (01) ==
LOC: ER 13:40
DX: O03.9 Complete or unspecified spontaneous abortion without complication (principal); Z88.1 Allergy status to other antibiotic agents
CPT/HCPCS: 36415; 76817; 80048; 81003; 84702; 85025; 86900; 86901; 99283

== ENCOUNTER 2023-05-06 18:16 | Emergency (ER) | payer BC ==
--- OUTSIDE RECORDS SUMMARY | 2023-05-06 18:20 | XMS REPORT | Continuity of Care Document ---
:1995 Author Organization [facility] t Address [address] [place] [id number] Care Team Providers Name Role Phone Martha Barbosa Primary Care Physician PATRICIA GONGORA Attending Clinician Unavailable Patricia Gongora MD Attending Clinician Masoud STEAM POWERPLANT SUPERVISOR, Eula Attending Clinician Pob, Adc Lab Main Attending Clinician Unavailable EULA STOCKTON Attending Clinician Unavailable Jolene Multani RN Attending Clinician Unavailable Doctor Unassigned, [place] Attending Clinician Unavailable Lab, Ang - Db Attending Clinician Unavailable PATRICIA GONGORA Admitting Clinician Unavailable Payers Payer Name Policy Type Policy Number Effective Date Expiration Date S [facility] - [id number] 2018 00:00:00 OUT OF STATE Problems Condition Condition Condition Status Onset Resolution Last Treating Co mments Source Name Details Category Date Date Treatment Clinician Date No known No known Disease Unive rs active active ity of problems problems [facility] Allergies, Adverse Reactions, Alerts Allergy Allergy Status Severity Reaction(s) Onset Inactive Treating Comm ents Source Name Type Date Date Clinician AMOXICIL DRUG Active Rash Univers ANDIE INGREDI - ity of 00:00: [address] Amoxicil Propensi Active Rash Univer s andie ty to 12-06 ity of adverse 00:00: [place] reaction 00 Medical s Branch Social History Social Habit Start Date Stop Date Quantity Comments Source ASSERTION 2022-06-01 [facility] 00:00:00 [facility] History of Cigarette Smoker Universi ty of tobacco use [facility] Exposure to 2022-07-27 2022-08-06 Not sure [facility] SARS-CoV-2 00:00:00 15:00:00 [facility] (event) Branch Alcohol intake 2022-07-29 2022-07-29 Ex-drinker [facility] 00:00:00 00:00:00 (finding) [facility] Tobacco use and 2022-07-14 2022-07-14 Smokeless tobacco Un iversity of exposure 00:00:00 00:00:00 non-user [facility] Sex Assigned At [birth year] Universit y of 00:00:00 00:00:00 [facility] Smoking Status Start Date Stop Date Source Tobacco smoking [facility] xa consumption unknown Medical Bran ch Ex-smoker 2022-07-14 00:00:00 2022-07-14 [facility] [place] 00:00:00 [facility] Medications Ordered Filled Start Stop Current Ordering Indication Dosage Frequency Signature Comments Components Source Medication Medication Date Date Medication? Clinician (SIG) Name Name No known 2021-09 No No known Unive rs medications 1-19 medication it y of 00:56: [address] No known 2021-09 No No known Unive rs medications 1-19 medication it y of 00:56: [address] No known 2021-09 No No known Unive rs medications 1-19 medication it y of 00:56: [address] No known 2021-09 No No known Unive rs medications 1-19 medication it y of 00:56: [address] No known 2021-09 No No known Unive rs medications 1-19 medication it y of 00:56: [address] No known 2021-09 No No known Unive rs medications 1-19 medication it y of 00:56: [address] No known 2021-09 No No known Unive rs medications 1-19 medication it y of 00:56: [address] No known 2021-09 No No known Unive rs medications 1-19 medication it y of 00:56: [address] No known 2021-09 No No known Unive rs medications 1-19 medication it y of 00:56: [address] metroNIDAZO 2021-09- No 500mg Take 1 Un [...] medications 1-09 medication it y of 15:19: [address] No known 2021-09 No No known Unive rs medications 1-09 medication it y of 15:19: [address] No known 2021-09 No No known Unive rs medications 1-09 medication it y of 15:19: [address] No known 2021-09 No No known Unive rs medications 0-25 medication it y of 11:16: [address] No known 2021-09 No No known Unive rs medications 0-25 medication it y of 11:16: [address] No known 2021-09 No No known Unive rs medications 0-25 medication it y of 11:16: [address] No known 2021-09 No No known Unive rs medications 0-25 medication it y of 11:16: [address] No known 2021-09 No No known Unive rs medications 0-25 medication it y of 11:16: [address] No known No No known Unive rs medications 3-16 medication it y of 11:42: [address] Immunizations Ordered Filled Immunization Date Status Comments [facility] e Immunization Name Name [facility] 2010-09-09 [facility] 00:00:00 [facility] 2010-09-09 Completed University of 00:00:00 [facility] HPV 2010-06-11 Completed University of 00:00:00 [facility] HPV 2010-06-11 Completed University of 00:00:00 [facility] HPV 2010-02-04 Completed University of 00:00:00 [facility] HPV 2010-02-04 Completed University of 00:00:00 [facility] Vital Signs Vital Name Observation Time Observation Value Comments Source Systolic blood 2022-08-06 21:20:00 113 mm[Hg] Univer sity of pressure [facility] Diastolic blood 2022-08-06 21:20:00 70 mm[Hg] Unive rsity of pressure [facility] Heart rate 2022-08-06 21:20:00 80 /min Universi ty of [facility] Body temperature 2022-08-06 21:20:00 36.72 Vira [facility] ersity of [facility] Body height 2022-08-06 21:20:00 152.4 cm Universi ty of [facility] Body weight 2022-08-06 21:20:00 65.409 kg Universi ty of [facility] BMI 2022-08-06 21:20:00 28.16 kg/m2 Universi ty of [facility] Systolic blood 2022-07-29 21:38:00 112 mm[Hg] Univer sity of pressure [facility] Diastolic blood 2022-07-29 21:38:00 74 mm[Hg] Unive rsity of pressure [facility] Heart rate 2022-07-29 21:38:00 79 /min Universi ty of [facility] Body temperature 2022-07-29 21:38:00 37.06 Vira [facility] [place] ersity of [facility] Respiratory rate 2022-07-29 21:38:00 16 /min [facility] [place] ersity of [facility] Body height 2022-07-29 21:38:00 152.4 cm Universi ty of [facility] Body weight 2022-07-29 21:38:00 65.273 kg Universi ty of [facility] BMI 2022-07-29 21:38:00 28.10 kg/m2 Universi ty of [facility] Oxygen saturation in 2022-07-29 21:38:00 97 /min [facility] Arterial blood by [facility] Pulse oximetry Branch Systolic blood 2022-07-14 16:12:00 115 mm[Hg] Univer sity of pressure [facility] Diastolic blood 2022-07-14 16:12:00 78 mm[Hg] Unive rsity of [facility] Heart rate 2022-07-14 16:12:00 76 /min Universi [facility] Body temperature 2022-07-14 16:12:00 36.67 Vira [facility] Respiratory rate 2022-07-14 16:12:00 16 /min [facility] Body height 2022-07-14 16:12:00 152.4 cm Universi ty [facility] Body weight 2022-07-14 16:12:00 64.184 kg [facility] BMI 2022-07-14 16:12:00 27.63 kg/m2 [facility] Oxygen saturation in 2022-07-14 16:12:00 99 /min [facility] Arterial blood by [facility] Pulse oximetry Branch Procedures Procedure Date / Time Performing Clinician Source Performed TOTAL BETA HCG ASSAY 2022-08-10 22:09:00 Eula Stockton [facility] US FIRST 2022-08-05 15:56:50 Adum, Patricia Carrillo [facility] TRIMESTER LESS THAN 14 Medical B ranch WEEKS WITH TRANSVAGINAL US OB TRANSVAGINAL 2022-07-29 23:16:40 Adum, Patricia Carrillo [facility] GALV ONLY - VAGINAL 2022-07-29 21:44:00 Adum, Patricia Carrillo [facility] PATHOGENS BY NUCLEIC Medical Bra [facility] ACID TESTING HOUSEHOLD COORDINATOR CLINIC 2022-07-29 06:01:00 Doctor Unassigned, No [facility] ULTRASOUND Name [facility] US OB TRANSVAGINAL 2022-07-20 20:07:48 Adum, Patricia Carrillo [facility] US OB TRANSVAGINAL 2022-07-20 20:06:45 Adum, Patricia Carrillo [facility] GALV ONLY - VAGINAL 2022-07-14 17:09:00 Adum, Patricia Carrillo [facility] PATHOGENS BY NUCLEIC [facility] Finco [facility] ACID TESTING GC & CHLAMYDIA 2022-07-14 16:23:00 AdumPatricia [facility] [facility] [place] AMPLIFIED [facility] TRICHOMONAS AMPLIFIED 2022-07-14 16:23:00 Adankur, Patricia naik [facility] ASSIGNMENT OF BENEFITS 2022-07-14 15:37:23 Doctor Unassigned, No [facility] POCT TEST 2022-07-14 00:00:00 Patricia Gongora [facility] [place] [facility] Encounters Start End Encounter Admission Attending Care Care Encounter Source Date/Time Date/Time Type Type Clinicians Facility Department ID 2022-08-18 2022-08-18 Outpatient R [facility] [id number] Univers 13:45:00 13:45:00 PATRICIA fischer [facility] 2022-08-17 2022-08-17 Telephone Critical access hospital [id number] Univers 00:00:00 00:00:00 Patricia LEONG [id number] ity of [facility] [place] [id number] Wi dical [facility] [address] [facility] 2022-08-11 2022-08-11 Telephone [facility] 12.840.11 [id number] Univers 00:00:00 00:00:00 Eula ZEE 350.1.13.10 it [place] [id number] [facility] [address] [place] 2022-08-10 2022-08-10 Client Sales And Service Officer David, Annie Lab Main [facility] 1.2.8 40.114 [id number] Univers 16:15:00 16:30:00 Visit Eula Stockton 350.1.13. 10 ity [place] [id number] Wi dical NAL [address] [facility] 2022-08-10 2022-08-10 Outpatient R EULA STOCKTON [facility] B [id number] Univers 16:15:00 16:15:00 EULA STOCKTON [facility] 2022-08-10 2022-08-10 Telephone [facility] 1.2.840.11 [id number] Univers 00:00:00 00:00:00 Eula ZEE 350.1.13.10 it [place] [id number] [facility] [address] 2022-08-10 2022-08-10 Case [facility] 1.2.840.114 [id number] Univers 00:00:00 00:00:00 Management Eula ZEE 350.1.13.10 ity of [place] [facility] [id number] [address] 2022-08-09 2022-08-09 Nurse CLIFF Multani 1.2.840.114 [id number] Univers 00:00:00 00:00:00 Triage Jolene CHENG 350.1.13.10 ity of [facility] 4.2.7.2.686 [place] [id number] [address] 2022-08-06 2022-08-06 [facility] [id number] Univers 15:00:00 16:20:04 PATRICIA ity of [facility] 2022-08-06 2022-08-06 [facility] 1.2.840.114 [id number] Univers 15:00:00 16:20:04 Patricia LEONG 350.1.13.10 ity of Visit [place] [facility] [id number] Wi dic[address] 2022-08-05 2022-08-05 Outpatient [facility] [id number] Univers 09:18:56 23:59:00 PATRICIA ity of [facility] 2022-08-05 2022-08-05 Hospital Critical access hospital 1.2.840.114 [id number] Univers 09:00:00 23:59:00 Encounter Patricia LEONG 350.1.13.10 ity of [place] [facility] [id number] [place] 546066 [place] 2022-07-31 2022-07-31 Case Adum, [facility] 1.2.840.114 [id number] Univers 00:00:00 00:00:00 Management Patricia LEONG 350.1.13.10 ity of [place] [id number] [facility] [address] [facility] 2022-07-29 2022-07-29 Client Sales And Service Officer David, Annie Lab Main [facility] 1.2.8 40.114 [id number] Univers 17:15:00 17:30:00 Visit Adum, Patricia LEONG 350.1.13.10 ity of [place] PROF[place] [id number] [address] 2022-07-29 2022-07-29 Outpatient R AD, [facility] [id number] Univers 15:30:00 16:34:51 PATRICIA ity of [facility] 2022-07-29 2022-07-29 Routine Ad, [facility] [id number] Univers 15:30:00 16:34:51 Patricia Carrillo YAYO 350.1.13.10 ity of Visit [place] [id number] [facility] [address] [place] 2022-07-29 2022-07-29 Orders Doctor CLIFF 1.2.840.114 [id number] Univers 00:00:00 00:00:00 Only Unassigned, PROSPER 350.1.13.10 ity of [facility] 4.2.7.2.686 [place] as [id number] [address] 2022-07-16 2022-07-16 Client Sales And Service Officer Lab, Ang - Db [facility] 1.2.840.1 [id number] Univers 12:30:00 12:45:00 Visit Adum, Patricia Carrillo HEALTH 350.1.13.10 ity of [place] 4.2.7.2.686 Conner as ZBIGNIEW?BLEA [id number] [address]ICAL OFFICE [facility] 2022-07-16 2022-07-16 Outpatient R ADUM, [facility] [id number] Univers 12:30:00 12:30:00 PATRICIA fischer [facility] 2022-07-14 2022-07-14 Client Sales And Service Officer Lab, Ang - Db [facility] 1.2.840.1 [id number] Univers 12:30:00 12:45:00 Visit Adum, Patricia ALONZO 350.1.13.10 ity of [place] 4.2.7.2.686 Conner as ZBIGNIEW?BLEA [id number] [address] MEDICAL OFFICE BUILDING 2022-07-14 2022-07-14 Outpatient R ADUM, [facility] [id number] Univers 10:15:00 12:14:27 PATRICIA fischer [facility] 2022-07-14 2022-07-14 Initial Adum, [facility] 1.2.000.339 [id number] Univers 10:15:00 12:14:27 Patricia ZEE 350.1.13.10 ity of [place] [id number] [address] 2022-07-14 2022-07-14 Letter Adum, [facility] 1.2.223.519 [id number] Univers 00:00:00 00:00:00 (Out) Patricia ZEE 350.1.13.10 i ty of [place] [id number] [address] 2022-07-14 2022-07-14 Letter Doctor CLIFF 1.2.840.114 [id number] Univers 00:00:00 00:00:00 (Out) Unassigned, PROSPER 350.1.13.10 ity of [facility] 4.2.7.2.686 [place] as [id number] [address] 2022-07-14 2022-07-14 Orders Doctor CLIFF 1.2.840.114 [id number] Univers 00:00:00 00:00:00 Only Unassigned, PROSPER 350.1.13.10 ity of [facility] 4.2.7.2.686 [place] as [id number] [address] Results Test Description Test Time Test Comments Results Result Comments Source TOTAL BETA HCG ASSAY 2022-08-10 23:44:34 Test Item Value Reference Range Interpretation Comme nts BETA HCG (test code = See_Comment [Auto mated message] The [id number]) system which ge nerated this result transmit suma reference range : Non- fe male and male patients: <5 mIU/mL. The reference r korey was not used to interpr et this result as jade l/abnormal. EDU (test code = EDU) Gestational Age ?Range (mIU/mL) 1-10 ?Weeks ?[id number] Weeks ?[id number] Weeks ?[id number] Weeks ?[id number] Biotin has been reported to cause a negative bias, interpret results relative to patient's use of biotin. [id number] 16:23:00 Test Item Value Reference Range Interpretation Comments POCT PREG (test code = 1605) Positive On board controls acceptable with C Yes Line (test code = 3574) POCT PREG LOT # (test code = 3575) POCT PREG TEST DATE (test code = 3576) [facility]
[2023-05-06] MEDS ORDERED: KETOROLAC 30 MG/ML INJ ONE (19:38)
[2023-05-06] MEDS ORDERED: ONDANSETRON 4 MG/2 ML VIAL ONE (19:38)
[2023-05-06] MEDS ORDERED: NA CHLORIDE 0.9% 1,000 ML ONE ×2 (19:38→20:53)
[2023-05-06 20:00] LABS: Specific Gravity 1.015 (1.005-1.030); Urine Bacteria <20 /HPF (<20); Urine Bilirubin NEGATIVE (Negative); Urine Blood 1+ (Negative); Urine Clarity Extremely Turbid (Clear); Urine Color Light-Yellow (Yellow); Urine Crystals Unidentified Few /HPF (None Seen); Urine Glucose NEGATIVE (Negative); Urine Protein TRACE (Negative); Urine Urobilinogen Normal (Normal); Urine WBC Clump Rare /HPF (None Seen)
[2023-05-06 20:02] LABS: Specific Gravity 1.015 (1.005-1.030)
[2023-05-06 20:14] LABS: Absolute Lymphocytes (CBC) 1.1 K/uL (0.7-4.9); Hematocrit 37.4 % (36.0-45.0); Lymphocytes % 10.3 % (15.3-44.8); MCV 89.4 fL (80-100); MPV 7.2 fL (7.6-11.3); Platelets 448 thou/uL (152-406); RBC Red Blood Cell Count 4.18 M/uL (3.86-4.86)
[2023-05-06 20:15] LABS: Albumin 3.5 g/dL (3.4-5.0); Bilirubin Total 0.4 mg/dL (0.2-1.0); Potassium 3.6 mEq/L (3.5-5.1); Protein, Total 8.5 g/dL (6.4-8.2)
--- NOTE | 2023-05-06 20:28 | RAD REPORT ---
EXAM DESCRIPTION: [facility]Stone Protocol - 05/06/2023 8:16 pm CLINICAL HISTORY: FLANK PAIN COMPARISON: No comparisons TECHNIQUE: CT of the abdomen and pelvis was performed. All CT scans are performed using dose optimization technique as appropriate and may include automated exposure control or mA/KV adjustment according to patient size. FINDINGS: Lower chest: No acute abnormality. Liver: No acute abnormality or suspicious lesions. Biliary: No biliary ductal dilatation. Stomach: No significant focal abnormality. Duodenum: No significant focal abnormality. Pancreas: No significant abnormality. Spleen: No significant abnormality. Adrenal: No suspicious lesions. Kidney/ureter: Mild right-sided hydronephrosis and perinephric stranding. No ureteral calculi identif ied. Retroperitoneum: No retroperitoneal adenopathy. Vascular: No aneurysm. Bowel: No significant focal abnormality. Peritoneum: No ascites or free air. Bladder: Mild circumferential bladder wall thickening. Reproductive: No adnexal masses. Bones: No acute fracture. Other: n/a IMPRESSION: Mild right-sided hydroureteronephrosis with perinephric stranding. No obstructing stone identified. This could be secondary to ascending urinary tract infection and right-sided pyelonephrit is.
[2023-05-06] MEDS ORDERED: CEFTRIAXONE 1000 MG/VIAL ONE (20:49)
--- NOTE | 2023-05-06 21:31 | EDPHYS ---
Physician Documentation [facility] Name: Heather Ivory Age: 28 yrs Sex: Female : 1995 Arrival Date: 05/06/2023 Time: 18:16 Bed 11 Private MD: LI GRIDER ED Physician Dajuan Carbajal HPI: 05/06 19:00 This 28 yrs old Female presents to ER via Ambulatory with complaints of Fever, cp Body aches. 19:00 The patient reports fever, with an emergency department temperature of 102.9 degrees cp Fahrenheit. 19:00 Onset: The symptoms/episode began/occurred today. cp 19:00 Associated signs and symptoms: Pertinent positives: chills, right flank pain. cp 19:00 Patient is a 28-year-old female with past medical history significant for anxiety and cp depression. Patient presents to the emergency department with complaints of fever, right flank pain. Patient reports she was treated for a urinary tract infection with oral Bactrim and completed a 10-day course about 2 weeks ago. She felt like her symptoms improved but have returned since completing the antibiotics. Historical: - Allergies: 18:45 Amoxicillin; cm10 - PMHx: 18:45 Anxiety; depressive disorder; cm10 - Immunization history:: Adult Immunizations unknown. - Social history:: Smoking status: unknown. ROS: 19:05 Constitutional: Positive for body aches, fever. cp 19:05 Eyes: Negative for injury, pain, redness, and discharge. cp 19:05 ENT: Negative for drainage from ear(s), ear pain, sore throat, difficulty swallowing, difficulty handling secretions. 19:05 Cardiovascular: Negative for chest pain, edema, palpitations. 19:05 Respiratory: Negative for cough, shortness of breath, wheezing. 19:05 Abdomen/GI: Positive for abdominal pain, Negative for vomiting, diarrhea, constipation. 19:05 : Positive for urinary symptoms, flank pain. 19:05 Neuro: Negative for altered mental status, dizziness, weakness. 19:05 All other systems are negative. Exam: 19:10 Constitutional: The patient appears in no acute distress, alert, awake, non-toxic, well cp developed, well nourished. 19:10 Head/Face: Normocephalic, atraumatic. cp 19:10 Eyes: Periorbital structures: appear normal, Conjunctiva: normal, no exudate, no injection, Sclera: no appreciated abnormality, Lids and lashes: appear normal, bilaterally. 19:10 ENT: External ear(s): are unremarkable, Nose: is normal, Mouth: Lips: moist, Oral mucosa: pink and intact, moist, Posterior pharynx: is normal, airway is patent, no erythema, no exudate. 19:10 Chest/axilla: Inspection: normal. 19:10 Cardiovascular: Rate: tachycardic, Rhythm: regular. 19:10 Respiratory: the patient does not display signs of respiratory distress, Respirations: normal, no use of accessory muscles, no retractions, labored breathing, is not present, Breath sounds: are clear throughout, no decreased breath sounds, no stridor, no wheezing. 19:10 Abdomen/GI: Inspection: abdomen appears normal, Bowel sounds: active, all quadrants, Palpation: soft, in all quadrants, moderate abdominal tenderness, in the posterior aspect of right lateral abdomen and anterior aspect of right lateral abdomen, rebound tenderness, is not appreciated. 19:10 Back: pain, that is moderate, of the right mid back, ROM is painful, with all movement. 19:10 Neuro: Orientation: to person, place \T\ time. Mentation: is normal, Motor: moves all fours, strength is normal, Sensation: is normal, Gait: is steady, at a normal pace, without difficulty. Vital Signs: 18:44 BP 122 / 77; Pulse 113; Resp 16; Temp 102.9; Pulse Ox 93% on R/A; Weight 63.5 kg; cm10 Height 4 ft. 11 in. ; 20:28 BP 94 / 62; Pulse 94; Resp 18; Pulse Ox 99% ; kl 20:34 Temp 99.4; kl 21:54 BP 98 / 58; Pulse 78; Resp 18; Temp 98; Pulse Ox 99% on R/A; kl 18:44 Body Mass Index 28.28 (63.50 kg, 149.86 cm) cm10 MDM: 18:46 Patient medically screened. cp 20:00 Differential diagnosis: UTI, pyelonephritis, sepsis. cp 21:30 Data reviewed: vital signs, nurses notes, lab test result(s), radiologic studies, CT cp scan. 21:30 Consideration of Admission/Observation Escalation of care including cp admission/observation considered. I considered the following discharge prescriptions or medication management in the emergency department Medications were administered in the Emergency Department. See MAR. Counseling: I had a detailed discussion with the patient and/or guardian regarding the historical points, exam findings, and any diagnostic results supporting the discharge/admit diagnosis, lab results, radiology results, the need for outpatient follow up, a family practitioner, to return to the emergency department if symptoms worsen or persist or if there are any questions or concerns that arise at home. Response to treatment: the patient's symptoms have markedly improved after treatment, and as a result, I will discharge patient. 05/06 18:51 Order name: CBC with Diff; Complete Time: 20:32 cp 05/06 20:32 Interpretation: Normal except: PLT 448; MPV 7.2; VIRAL% 80.2; NEUT A 8.5. cp 05/06 18:51 Order name: CMP; Complete Time: 20:32 cp 05/06 20:32 Interpretation: Normal except: NA 135. cp 05/06 18:51 Order name: Lipase; Complete Time: 20:32 cp 05/06 18:51 Order name: Test, Urine; Complete Time: 20:03 cp 05/06 18:51 Order name: Urinalysis w/ reflexes; Complete Time: 20:03 cp 05/06 19:26 Order name: Lactate w/ 2H reflex if indic.; Complete Time: 20:32 cp 05/06 20:04 Order name: Urine Culture EDSC 05/06 20:03 Order name: CT Stone Protocol; Complete Time: 20:32 cp 05/06 18:51 Order name: IV Saline Lock; Complete Time: 19:50 cp 05/06 18:51 Order name: Labs collected and sent; Complete Time: 19:50 cp Administered Medications: 19:26 Not Given (Physician Discretion): NS 0.9% IV 1000 ml IV at 1 bolus Per protocol; 1000 cp mL bolus 19:40 Drug: TORadol - Ketorolac IVP 15 mg Route: IVP; Site: right antecubital; kl 21:09 Follow up: Response: No adverse reaction; Marked relief of symptoms kl 19:40 Drug: Ondansetron IVP 4 mg Route: IVP; Site: right antecubital; kl 21:09 Follow up: Response: No adverse reaction; Marked relief of symptoms kl 20:30 Drug: NS 0.9% IV (30 ml/kg) 30 ml/kg Route: IV; Rate: bolus; Site: right antecubital; kl 20:35 Drug: Rocephin IV 1 grams Route: IV; Rate: calculated rate; Site: right antecubital; kl 21:56 Follow up: Response: No adverse reaction; Marked relief of symptoms kl Disposition Summary: 05/06/23 21:30 Discharge Ordered Location: Home cp Problem: new cp Symptoms: have improved cp Condition: Stable cp Diagnosis - Pyelonephritis acute cp Followup: cp - With: Private Physician - When: 2 - 3 days - Reason: Recheck today's complaints Discharge Instructions: - Discharge Summary Sheet cp - Pyelonephritis, Adult cp Forms: - Medication Reconciliation Form cp - Thank You Letter cp - Antibiotic Education cp - Prescription Opioid Use cp - Patient Portal Instructions cp - Leadership Thank You Letter cp - Work release form rv1 - Family Work Release rv1 Prescriptions: - Zofran 4 mg Oral Tablet - take 1 tablet by ORAL route every 12 hours As needed; 20 tablet; Refills: 0, cp Product Selection Permitted - Diclofenac Sodium 75 mg Oral Tablet Sustained Release - take 1 tablet by ORAL route 2 times per day; 30 tablet; Refills: 0, Product cp Selection Permitted - cefpodoxime 200 mg Oral Tablet - take 1 tablet by ORAL route every 12 hours for 10 days with food; 20 tablet; cp Refills: 0, Product Selection Permitted Addendum: 05/09/2023 20:38 Co-signature as Attending Physician, Dajuan Carbajal MD I reviewed the patient's care r t provided by the Advanced Practice Provider and agree with the diagnosis and treatment plan. Signatures: Dispatcher [employer] Rachael Guerrero, RN RN Shlomo Leon PA PA cp [place], Ryan, MD MD rt Alida Marie RN RN cm10
--- NOTE | 2023-05-06 21:31 | ER ---
Nurse's Notes [facility] Name: Heather Ivory Age: 28 yrs Sex: Female : 1995 Arrival Date: 05/06/2023 Time: 18:16 Bed 11 Private MD: LI GRIDER Diagnosis: Pyelonephritis acute Presentation: 05/06 18:44 Chief complaint: Patient states: fever and body aches X1 week. Pt diagnosed with UTI 1 cm10 week ago, completed treatment. Coronavirus screen: Client denies travel out of the [place] in the last 14 days. Ebola Screen: Patient denies travel to an Ebola-affected area in the 21 days before illness onset. No symptoms or risks identified at this time. Initial Sepsis Screen: Does the patient meet any 2 criteria? No. Patient's initial sepsis screen is negative. Does the patient have a suspected source of infection? No. Patient's initial sepsis screen is negative. Risk Assessment: Do you want to hurt yourself or someone else? Patient reports no desire to harm self or others. Onset of symptoms was May 06, 2023. 18:44 Method Of Arrival: Ambulatory cm10 18:44 Acuity: DOMENIC 3 cm10 Historical: - Allergies: 18:45 Amoxicillin; cm10 - PMHx: 18:45 Anxiety; depressive disorder; cm10 - Immunization history:: Adult Immunizations unknown. - Social history:: Smoking status: unknown. Screenin:52 [facility] ED Fall Risk Assessment (Adult) History of falling in the last 3 months, kl including since admission No falls in past 3 months (0 pts) Confusion or Disorientation No (0 pts) Intoxicated or Sedated No (0 pts) Impaired Gait No (0 pts) Mobility Assist Device Used No (0 pt) Altered Elimination No (0 pt) Score/Fall Risk Level 0 - 2 = Low Risk Oriented to surroundings, Maintained a safe environment. Abuse screen: Denies threats or abuse. Nutritional screening: No deficits noted. Tuberculosis screening: No symptoms or risk factors identified. Assessment: 19:51 General: Appears in no apparent distress. Behavior is calm, cooperative. Neuro: No kl deficits noted. Cardiovascular: Rhythm is sinus tachycardia. Respiratory: No deficits noted. GI: No deficits noted. : No deficits noted. EENT: No deficits noted. Derm: No deficits noted. 21:09 Reassessment: Patient appears in no apparent distress at this time. Patient and/or kl family updated on plan of care and expected duration. Pain level reassessed. Patient is alert, oriented x 3, equal unlabored respirations, skin warm/dry/pink. Patient states feeling better. Patient states symptoms have improved. 21:54 Reassessment: Patient appears in no apparent distress at this time. Patient denies pain kl at this time. Patient states feeling better. Patient states symptoms have improved. Vital Signs: 18:44 BP 122 / 77; Pulse 113; Resp 16; Temp 102.9; Pulse Ox 93% on R/A; Weight 63.5 kg; cm10 Height 4 ft. 11 in. ; 20:28 BP 94 / 62; Pulse 94; Resp 18; Pulse Ox 99% ; kl 20:34 Temp 99.4; kl 21:54 BP 98 / 58; Pulse 78; Resp 18; Temp 98; Pulse Ox 99% on R/A; kl 18:44 Body Mass Index 28.28 (63.50 kg, 149.86 cm) cm10 ED Course: 18:18 Patient arrived in ED. mr 18:19 CHEO LI is Private Physician. mr 18:22 [facility] Beasley [facility]. cp 18:22 Dajuan Carbajal MD is Attending Physician. cp 18:45 Triage completed. cm10 18:45 Arm band placed on Patient placed in waiting room. cm10 19:40 Inserted saline lock: 20 gauge in right antecubital area, using aseptic technique. kl Blood collected. 19:50 Lactate w/ 2H reflex if indic. Sent. kl 19:50 CBC with Diff Sent. kl 19:50 CMP Sent. kl 19:50 Lipase Sent. kl 19:50 Test, Urine Sent. kl 19:50 Urinalysis w/ reflexes Sent. kl 20:13 CT Stone Protocol In Process Unspecified. EDMS 21:54 No provider procedures requiring assistance completed. IV discontinued, intact, kl bleeding controlled, No redness/swelling at site. Pressure dressing applied. 21:55 Patient has correct armband on for positive identification. kl Administered Medications: 19:26 Not Given (Physician Discretion): NS 0.9% IV 1000 ml IV at 1 bolus Per protocol; 1000 cp mL bolus 19:40 Drug: TORadol - Ketorolac IVP 15 mg Route: IVP; Site: right antecubital; kl 21:09 Follow up: Response: No adverse reaction; Marked relief of symptoms kl 19:40 Drug: Ondansetron IVP 4 mg Route: IVP; Site: right antecubital; kl 21:09 Follow up: Response: No adverse reaction; Marked relief of symptoms kl 20:30 Drug: NS 0.9% IV (30 ml/kg) 30 ml/kg Route: IV; Rate: bolus; Site: right antecubital; kl 20:35 Drug: Rocephin IV 1 grams Route: IV; Rate: calculated rate; Site: right antecubital; kl 21:56 Follow up: Response: No adverse reaction; Marked relief of symptoms kl Outcome: 21:30 Discharge ordered by MD. archie 21:55 Discharged to home ambulatory, with family. kl 21:55 Condition: improved 21:55 Discharge instructions given to patient, Instructed on discharge instructions, follow up and referral plans. medication usage, Demonstrated understanding of instructions, follow-up care, medications, Prescriptions given X 3. 21:56 Patient left the ED. kl Signatures: Dispatcher [employer] EDMS Rachael Lindquist, RN RN Ramandeep Herrera Corey, PA PA cp Martinez, Clarissa RN RN cm10
[2023-05-06 22:43] VITALS: O2SAT 99
[2023-05-06 22:45] VITALS: BP 98/58; TEMP 98
== END 2023-05-06 21:56 | disposition home or self-care (01) ==
LOC: ER 18:16
DX: N10 Acute pyelonephritis (principal); Z88.1 Allergy status to other antibiotic agents
CPT/HCPCS: 87088; 85025; 81001; 87086; 36415; 81025; 83605; 87077; 87186; 83690; 80053; 76377; 74176; 96375; 96374; 99284; J2405; J7030 ×2; J0696